=== PATIENT | female | born 1955 ===

== ENCOUNTER 2019-06-27 14:01 | Emergency (ER) | payer BC ==
[2019-06-27] MEDS: EPINEPHrine 1:10,000 1 MG/10 ML Syringe IVPUSH PRN ×6 (14:04→14:41)
[2019-06-27] MEDS ORDERED: Sodium Chloride 0.9% 1,000 ML IV SCH (14:09)
[2019-06-27] MEDS ORDERED: Norepinephrine 4 MG in Dextrose 5% in Water 246 ML IV SCH ×2 (14:45)
[2019-06-27] MEDS ORDERED: Sodium Bicarbonate 8.4% 50 MEQ/50 ML Syringe IVPUSH ONE (14:50)
--- NOTE | 2019-06-27 15:04 | EDM.PDOC ---
ED HPI GENERAL MEDICAL PROBLEM - General Stated Complaint: CODE 100 Time Seen by Provider: 06/27/19 14:01 Source of Information: Reports: EMS, Family History Limitations: Reports: Other (Patient cannot provide any information secondary to her critical state) - History of Present Illness INITIAL COMMENTS - FREE TEXT/NARRATIVE: 63-year-old female who apparently was fine and per family was normal this morning without any complaints. She apparently went to the bank this early afternoon with her adult grandson to deposit a check. The grandson went into the bank and deposited the check and came out and walked over to talk to his boss who was also in the bank parking lot and a person from the [employer] came out apparently to give something to the grandson that had left when she was going to the car and she noticed that the patient was having some type of distress in the car and a bystander was able to open the door the patient was unresponsive and reported as having apnea and no pulse. When EMS arrived, the patient was apneic and unresponsive but did have a pulse. Multiple attempts at placing an airway were unsuccessful (however the patient was able to be bagged using bag- valve-mask easily per EMS) and during this time the patient did lose her pulse and CPR was initiated, using ACLS protocol and the Randy device. The patient was undergoing CPR via Randy device upon arrival. The family does tell me that the patient has a history of methamphetamine use in the past and they were concerned that recently she had restarted using methamphetamines. There is no history of opioid use. The patient does have depression and anxiety and is on Xanax for this. The family reports that there were no complaints of chest pain, shortness of breath, malaise, fatigue any complaints this morning. The patient apparently ate and drank normally according to the family. There are no other associated signs or symptoms. There are no other modifying factors. Onset: Today (1:15 to 1:30 PM) Context: Reports: Other (As above) Treatments SLIDE MACHINE TENDER: Reports: CPR, IV/IO, Oxygen, See EMS Report - Related Data Allergies Allergy/AdvReac Type Severity Reaction Status Date / Time Unable to Assess Allergy Unverified 06/27/19 14:22 Home Meds: Home Meds . [Unable to Verify Home Med List] 06/27/19 [History] Past Medical History Psychiatric History: Reports: Addiction (Patient with history of methamphetamine use in the past and the family feels that she has been using amphetamines recently. There was a package of crystalline substance found in the patient's pocket that was consistent with methamphetamines. This was found by the nursing staff and was turned over to the [place] [employer].) , Anxiety, Depression - Past Surgical History GI Surgical History: Reports: Cholecystectomy Female Surgical History: Reports: Section Social & Family History - Tobacco Use Smoking Status *Q: Current Every Day Smoker - Alcohol Use Alcohol Use Comment: reports the patient has no significant alcohol use. ED ROS GENERAL - Review of Systems Review Of Systems: Unable To Obtain ED EXAM, CPR - Physical Exam Exam: See Below Limited By: No Limitations General Appearance: Other (CPR in progress. No response to any stimuli.) Eye Exam: Bilateral Eye: Other (Pupils are 3 mm and minimally to non- responsive. Her sclera are anicteric.) Ears: Normal External Exam Nose: Normal Inspection, Normal Mucosa, No Blood Throat/Mouth: Other (Blood in the posterior pharynx. No intraoral lacerations noted. Intact dentition. Moist mucous membranes.) Head: Atraumatic, Normocephalic Neck: Other (No masses) Respiratory Chest: Normal Breath Sounds (With ventilation with bag.) Cardiovascular: Pulse with Compression, CPR In Progress GI/Abdominal Exam: Soft, No Mass, Distended (Slightly), Abnormal Bowel Sounds ( Essentially absent bowel sounds) Extremities: Normal Inspection (IO in place in her right lower leg), No Pedal Edema, Slow Capillary Refill Neurological: Unresponsive Skin Exam: Cool, Cyanosis ED CPR PROCEDURES - Endotracheal Intubation Time of Intubation: 14:19 ET Intubation Indication: Cardiac Arrest Preparation: Suction, Balloon Tested, BVM Set Up, Difficult Airway Equip Pre-Oxygenation: Assisted with BVM, 100% FiO2 Anesthesia Meds: Other (None) Placement: Orotracheal Cords Visualized: Yes ETT Size In mm: 7 Number of Attempts: 1 Confirmed By: CO2 Indicator Tube Secured By: Other (by [employer] staff) EKG INTERPRETATION EKG Date: 06/27/19 Time: 14:08 Rhythm: NSR (Sinus tachycardia with a rate of 111) Rate (Beats/Min): 111 Raphine: Normal P-Wave: Present QRS: RBBB ST-T: Depressed (Diffusely) QT: Prolonged (Prolonged QTC) Comparison: NA - No Prior EKG Course - Orders/Labs/Meds Orders: Active Orders 24 hr Category Date Time Status EKG Documentation Completion [RC] ASDIRECTED Care 06/27/19 14:28 Active Insert Sheikh Catheter [Insert Urinary Catheter] [OM.PC] Care 06/27/19 14:10 Ordered Q24H Urinary Catheter Assessment [RC] QSHIFT Care 06/27/19 16:21 Active Chest 1V Frontal [CR] Stat Exams 06/27/19 14:24 Taken EKG 12 Lead [EK] Routine Ther 06/27/19 14:24 Ordered Labs: Laboratory Tests 06/27/19 06/27/19 06/27/19 Range/Units 14:30 14:30 14:30 WBC 12.4 H (4.5-12.0) X10-3/uL RBC 4.58 (3.23-5.20) x10(6)uL Hgb 13.3 (11.5-15.5) g/dL Hct 41.0 (30.0-51.3) % MCV 89.4 (80-96) fL MCH 28.9 (27.7-33.6) pg MCHC 32.4 (32.2-35.4) g/dL RDW 12.9 (11.5-15.5) % Plt Count 144 (125-369) X10(3)uL MPV 9.8 (7.4-10.4) fL Add Manual Diff Yes Neutrophils % (Manual) 19 L (46-82) % Lymphocytes % (Manual) 76 H (13-37) % Monocytes % (Manual) 2 L (4-12) % Eosinophils % (Manual) 3 (0-5) % PT 11.5 H (8.7-11.1) INR 1.19 H (0.89-1.13) APTT 38.4 H (24.4-33.2) SECONDS ABG pH (7.35-7.45) ABG pCO2 (35-45) mmHg ABG pO2 (83-108) mmHg ABG HCO3 (22-26) mmol/L ABG O2 Saturation (96-97) % ABG Base Excess (-2-2) Calin Test O2 Delivery Device Oxygen Flow Rate L Sodium 139 (135-145) mmol/L Potassium 3.5 (3.5-5.3) mmol/L Chloride 106 (100-110) mmol/L Carbon Dioxide 11 L* (21-32) mmol/L BUN 19 H (7-18) mg/dL Creatinine 1.3 H (0.55-1.02) mg/dL Est Cr Clr Drug Dosing TNP Estimated GFR (MDRD) 42 L (>60) BUN/Creatinine Ratio 14.6 (9-20) Glucose 347 H (80-116) mg/dL Calcium 8.6 (8.6-10.2) mg/dL Magnesium 2.3 (1.8-2.5) mg/dL Total Bilirubin 0.3 (0.1-1.3) mg/dL AST 107 H (5-25) IU/L ALT 83 H (12-36) U/L Alkaline Phosphatase 111 (56-112) IU/L Troponin I (<0.017-0.056) ng/mL NT-Pro-B Natriuret Pep (<=125) pg/mL Total Protein 6.5 (6.0-8.0) g/dL Albumin 2.6 L (3.2-4.6) g/dL Globulin 3.9 g/dL Albumin/Globulin Ratio 0.7 Ethyl Alcohol (<0.03) % 06/27/19 06/27/19 Range/Units 14:30 14:42 WBC (4.5-12.0) X10-3/uL RBC (3.23-5.20) x10(6)uL Hgb (11.5-15.5) g/dL Hct (30.0-51.3) % MCV (80-96) fL MCH (27.7-33.6) pg MCHC (32.2-35.4) g/dL RDW (11.5-15.5) % Plt Count (125-369) X10(3)uL MPV (7.4-10.4) fL Add Manual Diff Neutrophils % (Manual) (46-82) % Lymphocytes % (Manual) (13-37) % Monocytes % (Manual) (4-12) % Eosinophils % (Manual) (0-5) % PT (8.7-11.1) INR (0.89-1.13) APTT (24.4-33.2) SECONDS ABG pH 7.11 L* (7.35-7.45) ABG pCO2 42 (35-45) mmHg ABG pO2 237 H (83-108) mmHg ABG HCO3 13 L (22-26) mmol/L ABG O2 Saturation 100 H (96-97) % ABG Base Excess -16.5 L (-2-2) Calin Test Passed O2 Delivery Device Ventilator Oxygen Flow Rate 15 L Sodium (135-145) mmol/L Potassium (3.5-5.3) mmol/L Chloride (100-110) mmol/L Carbon Dioxide (21-32) mmol/L BUN (7-18) mg/dL Creatinine (0.55-1.02) mg/dL Est Cr Clr Drug Dosing Estimated GFR (MDRD) (>60) BUN/Creatinine Ratio (9-20) Glucose (80-116) mg/dL Calcium (8.6-10.2) mg/dL Magnesium (1.8-2.5) mg/dL Total Bilirubin (0.1-1.3) mg/dL AST (5-25) IU/L ALT (12-36) U/L Alkaline Phosphatase (56-112) IU/L Troponin I 0.630 H* (<0.017-0.056) ng/mL NT-Pro-B Natriuret Pep 293 H (<=125) pg/mL Total Protein (6.0-8.0) g/dL Albumin (3.2-4.6) g/dL Globulin g/dL Albumin/Globulin Ratio Ethyl Alcohol < 0.03 (<0.03) % Meds: Medications Discontinued Medications Generic Name Dose Route Start Last Admin Trade Name Freq PRN Reason Stop Dose Admin Epinephrine HCl 1 mg 06/27/19 14:30 06/27/19 14:41 Epinephrine 1:10,000 IVPUSH 1 mg Q3M PRN Administration Other Norepinephrine Bitartrate 4 mg 250 mls @ 7.5 mls/hr 06/27/19 14:45 06/27/19 14:43 / Dextrose/Water IV 100 mcg/min TITRATE TAHIRA 375 mls/hr Administration Protocol 2 MCG/MIN Sodium Chloride 1,000 mls @ 999 mls/hr 06/27/19 14:09 06/27/19 14:09 Normal Saline IV 999 mls/hr ASDIRECTED TAHIRA Administration Sodium Bicarbonate 50 meq 06/27/19 14:50 06/27/19 14:42 Sodium Bicarbonate 8.4% IVPUSH 06/27/19 14:51 50 meq ONETIME ONE Administration - Radiology Interpretation Free Text/Narrative:: Portable chest x-ray shows good ET tube placement and good a G-tube placement. There is evidence of pulmonary edema on the chest x-ray. The cardiac silhouette is not enlarged. There is no hemothorax or pneumothorax. No fractures are noted. - Re-Assessments/Exams Free Text/Narrative Re-Assessment/Exam: 06/27/19 15:45: This represents a summarization note post care. I refer the patient to the charting done by Jean. The patient presented to the emergency department in cardiopulmonary arrest and undergoing CPR using Randy device. The patient was orally intubated using a Glidescope using a 7-0 ET tube. The patient regained her pulse following this and administration of epinephrine. The patient's course continued with regaining a pulse with a blood pressure in the 190/110-120 range and then losing circulation and pulses with a non- perfusing rhythm that appeared to be sinus. This continued until the life flight team arrived and at that point the patient was placed on a norepinephrine drip and was given sodium bicarbonate IV and following this, she maintained blood pressure and pulse and circulation. The patient has been orally intubated with a 7-0 ET tube, an OG tube has been placed, a Sheikh catheter has been placed and the patient has 2 peripheral IVs and 1 IO. The patient's chemistries appeared normal on her labs with a blood glucose of 347. An EKG showed diffuse ST segment depression but no STEMI pattern. The patient's troponin was mildly elevated at 0.69. Arterial blood gas did show evidence of a metabolic acidosis with a pH of 7.11 and a bicarbonate of 13. There was a package of crystalline substance that was found in the patient's pocket that was felt to be methamphetamine by the [place] [employer]. I did discuss the patient's condition with the family members including the patient's . They were allowed to see the patient and I answered their questions. The patient is in critical condition and I have told the family that her condition is grave and it is uncertain what the outcome will be. They understand that she is critical and the grave circumstances and would want us to do everything. The patient is being transferred to [facility] via [facility]. Dr. Lockett, ED physician at [facility] in [place], had been previously called and he had agreed to accept the patient in transfer. I called him as the patient was being transferred to give him a patient update. Departure - Departure Time of Disposition: 15:08 Disposition: DC/Tfer to Acute Hospital 02 Condition: Critical Clinical Impression: Cardiac arrest - Discharge Information Referrals: PCP,Unknown [Primary Care Provider] - Forms: ED Department Discharge Critical Care Note - Critical Care Note Total Time (mins): 50 Comments: Total critical care time spent with the patient devoid of procedures was 50 minutes. - My Orders Last 24 Hours: My Active Orders 06/27/19 14:10 Insert Sheikh Catheter [Insert Urinary Catheter] [OM.PC] Q24H 06/27/19 14:24 Chest 1V Frontal [CR] Stat EKG 12 Lead [EK] Routine 06/27/19 14:28 EKG Documentation Completion [RC] ASDIRECTED 06/27/19 16:21 Urinary Catheter Assessment [RC] QSHIFT - Assessment/Plan Last 24 Hours: My Active Orders 06/27/19 14:10 Insert Sheikh Catheter [Insert Urinary Catheter] [OM.PC] Q24H 06/27/19 14:24 Chest 1V Frontal [CR] Stat EKG 12 Lead [EK] Routine 06/27/19 14:28 EKG Documentation Completion [RC] ASDIRECTED 06/27/19 16:21 Urinary Catheter Assessment [RC] QSHIFT
== END 2019-06-27 15:07 ==
LOC: FB.ED 14:01 → MERGE 14:01 → EDBD 14:01 → FB.ED 15:07
DX: I46.9 Cardiac arrest, cause unspecified (principal); F41.9 Anxiety disorder, unspecified; F32.9 Major depressive disorder, single episode, unspecified; F17.200 Nicotine dependence, unspecified, uncomplicated; Z90.49 Acquired absence of other specified parts of digestive tract
CPT/HCPCS: 31500; 36415; 36600; 51702; 71045; 80053; 80320; 82803; 83735; 83880; 84484; 85025; 85610; 85730; 92950; 93005; 96361; 96365; 96375; 96376; 99285; J0171; J7030; J7060; G0480